=== PATIENT | female | born 1980 | race Asian ===

== ENCOUNTER 2019-11-22 19:35 | Emergency (ER) | payer OTHER ==
[~2019-11-22] VITALS: Ht 144.8 cm; Wt 54.3 kg
--- NOTE | 2019-11-22 19:43 | NUR ---
NOUGAT CUTTER MACHINE: EKG DONE IN TRIAGE
--- NOTE | 2019-11-22 20:54 | NUR ---
HEEL SEAT FITTER MACHINE: PT. TO ROOM FROM LOBBY AT THIS TIME.
[2019-11-22] MEDS ORDERED: SODIUM CHLORIDE FLUSH 10ML SYR IVF ONE (21:00)
[2019-11-22 21:28] LABS: ALANINE AMINOTRANSFERASE 11 U/L (12-78); ALBUMIN 3.7 g/dL (3.4-5.0); ANION GAP 6 mmol/L (5-15); CHLORIDE 108 mmol/L (98-107); CREATININE 0.81 mg/dL (0.55-1.02)
[2019-11-22 21:29] LABS: MEAN CORPUSCULAR HEMOGLOBIN 19.3 pg (27.0-34.8); MEAN CORPUSCULAR HGB CONC 30.7 g/dL (32.4-35.8); MEAN CORPUSCULAR VOLUME 62.8 fL (80-100); MEAN PLATELET VOLUME 7.6 fL (7.4-10.4); PLATELET COUNT 439 x10^3/uL (130-400); RED BLOOD COUNT 3.89 x10^6/uL (3.82-5.3); RED CELL DISTRIBUTION WIDTH 20.4 % (9.6-15.2)
[2019-11-22 21:30] LABS: ALKALINE PHOSPHATASE 61 U/L (45-117); BILIRUBIN,TOTAL 0.3 mg/dL (0.2-1.0); TOTAL PROTEIN 8.4 g/dL (6.4-8.2)
[2019-11-22 21:46] LABS: MD YES
[2019-11-22 21:49] LABS: ANISOCYTOSIS 1+; LYMPH#(MANUAL) 2.99 x10^3/uL (1-3.4); LYMPHS% (MANUAL) 34 % (22-44); MONOS#(MANUAL) 0.44 x10^3/uL (0.3-2.7); MONOS% (MANUAL) 5 % (2-9); SEG#(MANUAL) 5.37 x10^3/uL (1.8-6.8); SEGS% (MANUAL) 61 % (42-75)
[2019-11-22 21:50] LABS: HYPOCHROMIA 1+; MICROCYTOSIS 1+; OVALOCYTES 1+
[2019-11-22 21:51] LABS: POLYCHROMASIA 1+
[2019-11-22 21:52] LABS: <PLATELET ESTIMATE> INCREASED; <PLT MORPHOLOGY> NORMAL PLT MORPH
[2019-11-22 23:17] VITALS: BP 128/77
== END 2019-11-22 23:54 | disposition home or self-care (01) ==
LOC: ED 23:14
DX: D50.0 Iron deficiency anemia secondary to blood loss (chronic) (principal); R94.31 Abnormal electrocardiogram [ECG] [EKG]
CPT/HCPCS: 36415; 80053; 85025; 86850; 86900; 93005; 99284